=== PATIENT | female | born 1950 | race Caucasian/White ===

== ENCOUNTER 2017-01-09 10:56 | Emergency (ER) | payer OTHER ==
[~2017-01-09] VITALS: Ht 144.8 cm; Wt 87.5 kg
[2017-01-09 11:02] VITALS: BP 131/80
[2017-01-09 12:00] LABS: BASOPHILS # (AUTO) 0.1 K/uL (0.00-0.22); BASOPHILS % (AUTO) 1.3 % (0.0-2.0); EOSINOPHILS # (AUTO) 0.2 K/uL (0-0.4); EOSINOPHILS % (AUTO) 4.7 % (0.0-4.0); LYMPHOCYTES # (AUTO) 1.4 K/uL (2.5-16.5); LYMPHOCYTES % (AUTO) 29.6 % (20.5-51.1); MEAN CORPUSCULAR HEMOGLOBIN 28 pg (27-31); MEAN CORPUSCULAR HGB CONC 33 g/dL (33-37); MEAN CORPUSCULAR VOLUME 85 fL (80-94); MONOCYTES # (AUTO) 0.4 K/uL (0.8-1.0); NEUTROPHILS # (AUTO) 2.6 K/uL (1.8-7.7); NEUTROPHILS % (AUTO) 56.4 % (42.2-75.2); PLATELET COUNT (AUTO) 217 K/uL (140-450); RED BLOOD CELL COUNT(AUTO) 5.04 MIL/uL (4.20-5.40); RED CELL DISTRIBUTION WIDTH 13.3 % (11.6-13.7); WHITE BLOOD COUNT (AUTO) 4.7 K/uL (4.8-10.8)
[2017-01-09 12:07] LABS: CALCIUM 9.1 mg/dL (8.5-10.1); CARBON DIOXIDE 29.2 mmol/L (21-32); CREATININE 0.7 mg/dL (0.6-1.3); POTASSIUM 4.2 mmol/L (3.5-5.1)
[2017-01-09 12:13] LABS: TOTAL BILIRUBIN 0.8 mg/dL (0.0-1.0); TOTAL PROTEIN, SERUM 7.8 g/dL (6.4-8.2)
--- NOTE | 2017-01-09 12:16 | NUR ---
PT WHEELCHAIR ASSISTED TO BED 6 AT THIS TIME.
--- NOTE | 2017-01-09 12:18 | NUR ---
66/F BIB SISTER C/O NAUSEA ,DIARRHEA & LOWER ABDOMINAL PAIN RADIATING TO LOWER BACK PAIN X 2 DAYS.PT STATES HAS DIARRHEA X 5 EPISODES IN THIS MORNING. SKIN IS PINK/WARM/DRY; AAOX4 WITH EVEN AND STEADY GAIT; LUNGS CLEAR BL; HR EVEN AND REGULAR; PT DENIES ANY FEVER, CP, SOB, OR COUGH AT THIS TIME; PATIENT STATES PAIN OF 10/10 AT THIS TIME PATIENT POSITIONED FOR COMFORT; HOB ELEVATED; BEDRAILS UP X2; BED DOWN. ER MD MADE AWARE OF PT STATUS.
--- NOTE | 2017-01-09 14:00 | NUR ---
ER MD DR AMOS EVALUATING PT AT BEDSIDE
[2017-01-09] MEDS ORDERED: KETOROLAC 60 MG/2 ML VIAL IM ONE (14:10)
[2017-01-09 14:39] VITALS: BP 129/81
== END 2017-01-09 14:39 | disposition home or self-care (01) ==
LOC: MED 10:56
DX: R10.32 Left lower quadrant pain (principal); R50.9 Fever, unspecified; E11.9 Type 2 diabetes mellitus without complications; Z90.49 Acquired absence of other specified parts of digestive tract; Z85.42 Personal history of malignant neoplasm of other parts of uterus; Z88.0 Allergy status to penicillin; Z88.2 Allergy status to sulfonamides; Z91.040 Latex allergy status
CPT/HCPCS: 36415; 74176; 80053; 81002; 83690; 85025; 96372; 99285; J1885

== ENCOUNTER 2017-01-27 13:43 | Emergency (ER) | payer OTHER ==
[~2017-01-27] VITALS: Ht 144.8 cm; Wt 87.5 kg
[2017-01-27 13:54] VITALS: BP 112/77
[2017-01-27] MEDS ORDERED: SYN.05 PO (13:59)
[2017-01-27] MEDS ORDERED: HYDR-4452 PO (13:59)
[2017-01-27] MEDS ORDERED: BACL10TA4 PO (13:59)
[2017-01-27] MEDS ORDERED: BENZ-196 PO (13:59)
[2017-01-27] MEDS ORDERED: LISI-420 PO (13:59)
[2017-01-27] MEDS ORDERED: VITD1000 PO (13:59)
[2017-01-27] MEDS ORDERED: GABA100C PO (13:59)
--- NOTE | 2017-01-27 14:19 | NUR ---
Patient taken from ED lobby to XRAY via wheelchair by tech.
--- NOTE | 2017-01-27 15:22 | NUR ---
Patient ambulated to bed 7. RN evaluating patient at bedside.
--- NOTE | 2017-01-27 15:24 | NUR ---
Dr. Downing evaluating patient at bedside.
--- NOTE | 2017-01-27 15:30 | NUR ---
PATIENT PRESENTS TO ED WITH RIGHT WRIST PAIN AND LLE PAIN S/P MECHANICAL FALL X1 WK AGO . PT STATES . DENIES N/V/D; SKIN IS PINK/WARM/DRY; AAOX4 WITH EVEN AND STEADY GAIT; LUNGS CLEAR BL; HR EVEN AND REGULAR; PT DENIES ANY FEVER, CP, SOB, OR COUGH AT THIS TIME; PATIENT STATES PAIN OF 7/10 AT THIS TIME; VSS; PATIENT POSITIONED FOR COMFORT; HOB ELEVATED; BEDRAILS UP X2; BED DOWN. ER MD MADE AWARE OF PT STATUS.
--- NOTE | 2017-01-27 15:34 | NUR ---
LAST NOTED WAS WRITTEN BY Cami GOOD RN
--- NOTE | 2017-01-27 15:35 | NUR ---
X-Ray at bedside.
--- NOTE | 2017-01-27 15:45 | NUR ---
SPOKE WITH PT--INFORMED HER X-RAY WERE NEGATIVE--NO FRACTURES NOTED PT REFUSED RX FOR ANALGESIC, STATED HAD PLENTY AT HOME. REFUSED IM MED ANALGESIC AT THIS TIME. PT ADMITS NO OTHER COMPLAINTS AT THIS TIME.
--- NOTE | 2017-01-27 15:47 | NUR ---
Patient discharged with v/s stable. Written and verbal after care instructions given and explained. Patient verbalized understanding. Ambulatory with steady gait. All questions addressed prior to discharge. Advised to follow up with PMD.
[2017-01-27 15:50] VITALS: BP 138/92
== END 2017-01-27 15:47 | disposition home or self-care (01) ==
LOC: MED 13:43
DX: S50.11XA Contusion of right forearm, initial encounter (principal); S80.12XA Contusion of left lower leg, initial encounter; E11.9 Type 2 diabetes mellitus without complications; Z88.0 Allergy status to penicillin; Z88.2 Allergy status to sulfonamides; Z91.040 Latex allergy status; W18.39XA Other fall on same level, initial encounter; Y93.89 Activity, other specified; Y92.89 Other specified places as the place of occurrence of the external cause; Y99.8 Other external cause status
CPT/HCPCS: 73090; 73590; 99284; Q0092

== ENCOUNTER 2018-07-04 11:12 | Emergency (ER) | payer OTHER ==
[~2018-07-04] VITALS: Ht 144.8 cm; Wt 79.8 kg
[~2018-07-04 11:12] MED LIST: ACET-787 PO; BACL10TA4 PO; BENZ-196 PO; GABA100C PO; LISI-420 PO; SYN.05 PO; VITD1000 PO
--- NOTE | 2018-07-04 11:14 | NUR ---
PT W/C TO BED 8.
[2018-07-04 11:20] VITALS: BP 139/84
--- NOTE | 2018-07-04 11:22 | NUR ---
68/f brought in by sister via wheelchair with c/o right knee pain s/p mechanical fall today--states fell with knee flexed. denies LOC. MED HX : right knee replacement 2012, left hip replacement, polio, dm, htn, thyroid.SKIN IS PINK/WARM/DRY. LUNGS CLEAR BL; HR EVEN AND REGULAR. PATIENT STATES PAIN OF 10/10 AT THIS TIME. PATIENT POSITIONED FOR COMFORT. ER MD MADE AWARE OF PT STATUS.
[2018-07-04] MEDS ORDERED: KETOROLAC 30 MG/ML VIAL IM ONE (12:00)
--- NOTE | 2018-07-04 13:40 | NUR ---
Patient being reevaluated by DR FRANZ at bedside.
[2018-07-04 13:53] VITALS: BP 144/91
--- NOTE | 2018-07-04 13:53 | NUR ---
Patient discharged with v/s stable. Written and verbal after care instructions given and explained. Patient alert, oriented and verbalized understanding of instructions. Wheel Chair Assisted with to car. All questions addressed prior to discharge. ID band removed. Patient advised to follow up with PMD. Rx of xanax given. Patient educated on indication of medication including possible reaction and side effects. Opportunity to ask questions provided and answered.
== END 2018-07-04 13:53 | disposition home or self-care (01) ==
LOC: MED 11:12
DX: S86.811A Strain of other muscle(s) and tendon(s) at lower leg level, right leg, initial encounter (principal); G47.00 Insomnia, unspecified; Z88.0 Allergy status to penicillin; Z88.2 Allergy status to sulfonamides; Z91.040 Latex allergy status; W19.XXXA Unspecified fall, initial encounter; Y93.89 Activity, other specified; Y92.89 Other specified places as the place of occurrence of the external cause; Y99.8 Other external cause status
CPT/HCPCS: 29505; 73562; 96372; 99284; J1885; Q0092

== ENCOUNTER 2018-07-14 11:11 | Emergency (ER) | payer OTHER ==
[~2018-07-14] VITALS: Ht 144.8 cm; Wt 79.8 kg
[2018-07-14 11:23] VITALS: BP 121/76
--- NOTE | 2018-07-14 11:28 | NUR ---
Patient transferred to bed 10 via wheelchair by tech. RN evaluating patient at bedside.
--- NOTE | 2018-07-14 11:30 | NUR ---
Note undone in EDM - 07/14/18 at 1354 by [email or web address] 68 YO F BIB SELF S/P MECHANICAL FALL. PT REPORTS THAT SHE FELL 1 WEEK AGO AND WAS TOLD RIGHT JAG WAS SPRAINED AT ER AND GIVEN KNEE BRACE. PT STATED THAT ON SUNDAY SHE WAS NOT WEARING THE BRACE AND HER KNEE GAVE OUT. PT LANDED ON HER RIGHT SIDE/HIP, PAIN 10/10, UNABLE TO AMBULATE W/O WORSENING. DENIES HITTING HEAD/LOC, DENIES N/V/D/FEVER. AAOX4, GCS 15. HX POLIO, LEFT HIP REPLACEMENT, RIP KNEE REPLACEMENT, RIGHT ANKLE FUSION
--- NOTE | 2018-07-14 11:30 | NUR ---
68/F BIB SELF C/O PAIN R HIP & R LEG S/P MECHANICAL FALL X 4 DAYS AGO.DENIES LOC. HX POLIO, LEFT HIP REPLACEMENT, RIP KNEE REPLACEMENT, RIGHT ANKLE FUSION AAOX4 , AMB WITH W/C AT THIS TIME. ; LUNGS CLEAR BL.PATIENT STATES PAIN OF 10/10 AT THIS TIME. PATIENT POSITIONED FOR COMFORT; HOB ELEVATED; BEDRAILS UP X2; BED DOWN. ER MD MADE AWARE OF PT STATUS.
[2018-07-14] MEDS ORDERED: MORPHINE SULFATE 2 MG/ML SYR IM ONE (12:15)
[2018-07-14] MEDS ORDERED: KETOROLAC 60 MG/2 ML VIAL IM ONE (12:15)
[2018-07-14 14:36] VITALS: BP 122/78
--- NOTE | 2018-07-14 14:36 | NUR ---
Patient discharged with v/s stable. Written and verbal after care instructions given and explained. Patient alert, oriented and verbalized understanding of instructions. Wheel Chair Assisted with to car. All questions addressed prior to discharge. ID band removed. Patient advised to follow up with PMD. Rx of TEMAZEPAM, TRAMADOL given. Patient educated on indication of medication including possible reaction and side effects. Opportunity to ask questions provided and answered.
== END 2018-07-14 14:36 | disposition home or self-care (01) ==
LOC: MED 11:11
DX: S73.101A Unspecified sprain of right hip, initial encounter (principal); S83.91XA Sprain of unspecified site of right knee, initial encounter; G47.00 Insomnia, unspecified; E11.9 Type 2 diabetes mellitus without complications; I10 Essential (primary) hypertension; Z88.0 Allergy status to penicillin; Z88.2 Allergy status to sulfonamides; Z91.040 Latex allergy status; Z85.42 Personal history of malignant neoplasm of other parts of uterus; Z79.899 Other long term (current) drug therapy; W18.30XA Fall on same level, unspecified, initial encounter; Y93.89 Activity, other specified; Y92.89 Other specified places as the place of occurrence of the external cause; Y99.8 Other external cause status
CPT/HCPCS: 73502; 73562; 96372; 99284; J1885; J2270; Q0092

== ENCOUNTER 2020-08-05 23:30 | Emergency (ER) | payer MEDICARE, OTHER ==
[~2020-08-05] VITALS: Ht 144.8 cm; Wt 82.1 kg
[2020-08-05 23:30] VITALS: BP 122/79
[~2020-08-05 23:30] MED LIST changes: -ACET-787 PO; +HYDR-5191 PO
--- NOTE | 2020-08-05 23:30 | NUR ---
PT TRANFERRED TO BED 7 VIA CANDICE
--- NOTE | 2020-08-05 23:41 | NUR ---
70 Y/O FEMALE BIBA C/O PALPITATIONS X3DAYS. DENIES N/V/D; SKIN IS PINK/WARM/DRY; AAOX4; LUNGS CLEAR BL; HR EVEN AND REGULAR; PT DENIES ANY FEVER, CP, SOB, OR COUGH AT THIS TIME; PATIENT STATES PAIN OF 0/10 AT THIS TIME; VSS; PATIENT POSITIONED FOR COMFORT; HOB ELEVATED; BEDRAILS UP X2; BED DOWN. MEDHX: POLIO, DM, HTN, HYPOTHYROIDISM, R KNEE REPLACEMENT, L HIP REPLACEMENT ALLERGIES: PENICILLIN, SULFA DRUGS RX: ASPIRIN 324 GIVEN BY EMS. PT STATES SHE TOOK NORCO AND A MUSCLE RELAXER, BUT CANNOT RECALL THE NAME, TAKEN BOTH TODAY.
--- NOTE | 2020-08-05 23:48 | NUR ---
ERMD AT BEDSIDE EVALUATING PT
[2020-08-06] MEDS ORDERED: NACL 0.9% 1,000 ML IV ONE (00:15)
--- NOTE | 2020-08-06 00:18 | NUR ---
LAB AT BEDSIDE TO DRAW LABS
[2020-08-06 00:31] LABS: BASOPHILS % (AUTO) 0.4 % (0.0-2.0); EOSINOPHILS # (AUTO) 0.1 K/uL (0-0.4); EOSINOPHILS % (AUTO) 1.9 % (0.0-4.0); HEMATOCRIT 37.9 % (36-48); HEMOGLOBIN 12.5 g/dL (12.0-16.0); LYMPHOCYTES % (AUTO) 19.2 % (20.5-51.1); MEAN CORPUSCULAR HEMOGLOBIN 28 pg (27-31); MEAN CORPUSCULAR HGB CONC 33 g/dL (33-37); MEAN CORPUSCULAR VOLUME 85.7 fL (80-94); MONOCYTES # (AUTO) 0.4 K/uL (0.8-1.0); MONOCYTES % (AUTO) 7.9 % (1.7-9.3); NEUTROPHILS # (AUTO) 3.6 K/uL (1.8-7.7); NEUTROPHILS % (AUTO) 70.6 % (42.2-75.2); PLATELET COUNT (AUTO) 176 K/uL (140-450); RED BLOOD CELL COUNT(AUTO) 4.43 MIL/uL (4.20-5.40); RED CELL DISTRIBUTION WIDTH 14.1 % (11.6-13.7); WHITE BLOOD COUNT (AUTO) 5.1 K/uL (4.8-10.8)
--- NOTE | 2020-08-06 00:39 | NUR ---
XRAY AT BEDSIDE
[2020-08-06 00:48] LABS: ALBUMIN 3.9 g/dL (3.4-5.0); ANION GAP 18.5 (8-16); CARBON DIOXIDE 21.4 mmol/L (21-32); POTASSIUM 3.9 mmol/L (3.5-5.1); TOTAL BILIRUBIN 0.7 mg/dL (0.0-1.0)
[2020-08-06 01:49] LABS: BARBITURATE, URINE NEGATIVE ng/ml (NEG <=200); BENZODIAZEPINE, URINE NEGATIVE ng/mL (NEG <=200); CANNABINOID, URINE NEGATIVE ng/mL (NEG <=50); COCAINE, URINE NEGATIVE ng/mL (NEG <=300); OPIATE, URINE POSITIVE ng/mL (NEG <=2000); PHENCYCLIDINE SCREEN,URINE NEGATIVE ng/mL (NEG <=25)
--- NOTE | 2020-08-06 02:33 | NUR ---
LAB AT BEDSIDE
[2020-08-06 02:49] LABS: ANION GAP 15.4 (8-16); CARBON DIOXIDE 24.7 mmol/L (21-32); CREATININE 1.9 mg/dL (0.6-1.3); POTASSIUM 4.1 mmol/L (3.5-5.1)
[2020-08-06 03:20] VITALS: BP 124/60
--- NOTE | 2020-08-06 03:20 | NUR ---
Patient discharged with v/s stable. Written and verbal after care instructions given and explained. Patient verbalized understanding. Wheel Chair Assisted with to car. ID Band Removed. All questions addressed prior to discharge. Advised to follow up with PMD.
== END 2020-08-06 03:20 | disposition home or self-care (01) ==
LOC: MED 23:30
DX: R00.2 Palpitations (principal); R07.9 Chest pain, unspecified; E86.0 Dehydration; E11.9 Type 2 diabetes mellitus without complications; I10 Essential (primary) hypertension; Z88.0 Allergy status to penicillin; Z88.2 Allergy status to sulfonamides; Z91.040 Latex allergy status; Z85.42 Personal history of malignant neoplasm of other parts of uterus
CPT/HCPCS: 36415; 71045; 80048; 80053; 80305; 82550; 82553; 83690; 84484; 85025; 93005; 96360; 99285; J7030; Q0092